=== PATIENT | male | born 1945 | race Caucasian/White ===

== ENCOUNTER 2021-02-20 14:40 | Emergency (ER) | payer OTHER, MEDICARE ==
[2021-02-20] MEDS ORDERED: Sodium Chloride 0.9% 10 ML Syringe FLUSH PRN (14:49)
[2021-02-20] MEDS ORDERED: Morphine 4 MG/ML Syringe IVPUSH ONE ×3 (14:50→17:45)
[2021-02-20] MEDS ORDERED: ceFAZolin 1 GM Vial IVPUSH ONE (15:08)
--- NOTE | 2021-02-20 15:21 | EDM.PDOC ---
ED HPI GENERAL MEDICAL PROBLEM - General Chief Complaint: Upper Extremity Injury/Pain Stated Complaint: CUT FINGER Time Seen by Provider: 02/20/21 15:00 Source of Information: Reports: Patient History Limitations: Reports: No Limitations - History of Present Illness INITIAL COMMENTS - FREE TEXT/NARRATIVE: Pt. presents to ER with complaints of injury to fingers of R hand. Pt. states that he was working with a table saw when he sustained the injury. Denies injury elsewhere. Pt. tetanus is up to date according to [facility] one chart. Onset: Today Onset Date: 02/20/21 Location: Reports: Upper Extremity, Right Quality: Reports: Ache, Sharp, Throbbing Severity: Severe Right Hand Pain Score (Numeric/FACES): 8 - Related Data Allergies Allergy/AdvReac Type Severity Reaction Status Date / Time No Known Allergies Allergy Verified 02/20/21 16:05 Home Meds: Home Meds Ascorbic Acid [Vitamin C] 500 mg PO DAILY 07/17/13 [History] Calcium Carbonate/Vitamin D3 [Caltrate-600 with Vit D Tab] 1 each PO DAILY 07/17/13 [History] Hydrochlorothiazide/Lisinopril [Lisinopril-HCTZ 20-25 MG] 1 tab PO DAILY 07/17/13 [History] Multivitamin [Multi Vitamin Daily] 1 tab PO DAILY 07/17/13 [History] Vitamin E 1 tab PO DAILY 07/17/13 [History] Vitamins A and D [Vitamin A & D] 1 tab PO DAILY 07/17/13 [History] Meclizine [Antivert] 25 mg PO Q6H #14 tablet 02/06/15 [Rx] Selenium 50 mcg PO DAILY 02/20/21 [History] Past Medical History - Past Surgical History Other Musculoskeletal Surgeries/Procedures:: back surgery Review of Systems - Review of Systems Review Of Systems: See Below Constitutional: Reports: No Symptoms Eyes: Reports: No Symptoms Ears: Reports: No Symptoms Nose: Reports: No Symptoms Mouth/Throat: Reports: No Symptoms Respiratory: Reports: No Symptoms Cardiovascular: Reports: No Symptoms GI/Abdominal: Reports: No Symptoms Genitourinary: Reports: No Symptoms Musculoskeletal: Reports: Hand Pain Skin: Reports: No Symptoms Neurological: Reports: No Symptoms Psychiatric: Reports: No Symptoms ED EXAM, GENERAL - Physical Exam Exam: See Below Exam Limited By: No Limitations General Appearance: Alert, WD/WN, No Apparent Distress Extremities: Other (Partial avulsion to pad of L index finger with missing tissue. Partial avulsion to pad of R middle finger. Severe laceration/partial avulsion of R ring finger involving the fingernail. ) Neurological: Alert, Oriented, CN II-XII Intact, No Motor/Sensory Deficits Skin Exam: Warm, Dry, Intact, Normal Color, No Rash ED TRAUMA EXTREMITY PROCEDURES - Splinting Right Upper Extremity Pre-Procedure NV Status: Normal Post-Procedure NV Status: Normal Splint Material: Fiberglass (fabricated) Splint Design: Volar Applied & Form Fitted By: Provider, Nurse Provider Post-Splint Application NV Check: NV Status Normal, Good Position Course - Vital Signs Last Recorded V/S: Last Vital Signs Temp 36.2 C 02/20/21 15:00 Pulse 60 02/20/21 18:10 Resp 16 02/20/21 18:10 BP 124/68 02/20/21 18:10 Pulse Ox 94 L 02/20/21 18:10 - Orders/Labs/Meds Orders: Active Orders 24 hr Category Date Time Status Hand w Cont Rt [CT] Stat Exams 02/20/21 14:50 Stop Req Peripheral IV Insertion Adult [OM.PC] Routine Oth 02/20/21 14:49 Ordered Meds: Medications Discontinued Medications Generic Name Dose Route Start Last Admin Trade Name Bon PRN Reason Stop Dose Admin Hydrocodone Bitart/Acetaminophen 1 packet 02/20/21 17:42 02/20/21 18:01 Take Home: Acetaminophen/Hydrocodone 325-10 Mg, 5 Tab Pack PO 02/20/21 17:43 1 packet ONETIME ONE Administration Cefazolin Sodium 1 gm 02/20/21 15:08 02/20/21 15:32 Cefazolin 1 Gm Vial IVPUSH 02/20/21 15:09 1 gm ONETIME ONE Administration Cephalexin 1 packet 02/20/21 17:42 02/20/21 18:01 Take Home: Cephalexin 500 Mg Cap, 4 Cap Pack PO 02/20/21 17:43 1 packet ONETIME ONE Administration Morphine Sulfate 4 mg 02/20/21 14:50 02/20/21 15:05 Morphine 4 Mg/Ml Syringe IVPUSH 02/20/21 14:51 4 mg ONETIME ONE Administration Morphine Sulfate 4 mg 02/20/21 15:28 02/20/21 15:36 Morphine 4 Mg/Ml Syringe IVPUSH 02/20/21 15:29 4 mg ONETIME ONE Administration Morphine Sulfate 4 mg 02/20/21 17:45 02/20/21 17:56 Morphine 4 Mg/Ml Syringe IVPUSH 02/20/21 17:46 4 mg ONETIME ONE Administration Sodium Chloride 10 ml 02/20/21 14:49 02/20/21 15:41 Sodium Chloride 0.9% 10 Ml Syringe FLUSH 10 ml ASDIRECTED PRN Administration Keep Vein Open - Radiology Interpretation Free Text/Narrative:: Radiographs of the fingers of the R hand were obtained. Possible fracture to mid portion of distal phalaynx of R ring finger, less evident on lateral view. Departure - Departure Time of Disposition: 18:30 Disposition: Home, Self-Care 01 Clinical Impression: Fingernail avulsion, partial, Laceration - Discharge Information Instructions: Laceration Care, Adult Referrals: Svetlana Plata DO [Primary Care Provider] - Forms: ED Department Discharge Additional Instructions: Keep dressing/splint on. Follow-up with Dr. Higgins tomorrow at [facility]. Get registered in the ER. Be there by 11 AM. [place] 10/325mg 1 every 4-6 hours as needed for pain Keflex 500mg 1 cap 4 times a day for 7 days - Problem List Review Problem List Initiated/Reviewed/Updated: Yes - My Orders Last 24 Hours: My Active Orders 02/20/21 14:49 Peripheral IV Insertion Adult [OM.PC] Routine 02/20/21 14:50 Hand w Cont Rt [CT] Stat - Assessment/Plan Last 24 Hours: My Active Orders 02/20/21 14:49 Peripheral IV Insertion Adult [OM.PC] Routine 02/20/21 14:50 Hand w Cont Rt [CT] Stat Plan: Keep dressing/splint on. Follow-up with Dr. Higgins tomorrow at [facility]. Get registered in the ER. Be there by 11 AM. [place] 10/325mg 1 every 4-6 hours as needed for pain Keflex 500mg 1 cap 4 times a day for 7 days
--- NOTE | 2021-02-20 15:42 | CR ---
[id number] RAD/RAD Hand Right 3V EXAM: RAD Hand Right 3V INDICATION: CUT HAND WITH CIRCULAR SAW. COMPARISON: None. DISCUSSION: Soft tissue injuries are suggested in the distal aspect of the second through fourth digits. No radiopaque foreign body, fracture or other acute osseous abnormality is identified. Mild first carpometacarpal osteoarthritis. IMPRESSION: 1. Soft tissue injuries. Adam Hernandez MD 02/20/21 [id number] Thank you for allowing us to participate in the care of your patient.
[2021-02-20] MEDS ORDERED: Take Home: Acetaminophen/HYDROcodone 325-10 MG, 5 Tab Pack PO ONE (17:42)
[2021-02-20] MEDS ORDERED: Take Home: Cephalexin 500 MG Cap, 4 Cap Pack PO ONE (17:42)
[2021-02-20 18:30] VITALS: PULSE 60
[2021-02-20 18:31] VITALS: BP 124/68
== END 2021-02-20 18:20 | disposition home or self-care (01) ==
LOC: VM.ED 14:40
DX: S61.314A Laceration without foreign body of right ring finger with damage to nail, initial encounter (principal); S61.201A Unspecified open wound of left index finger without damage to nail, initial encounter; S61.202A Unspecified open wound of right middle finger without damage to nail, initial encounter; W31.2XXA Contact with powered woodworking and forming machines, initial encounter; Y92.69 Other specified industrial and construction area as the place of occurrence of the external cause
CPT/HCPCS: 29125; 73130-RT; 73201-RT; 96374; 96375; 96376; 99283; 99283-25; A9270-GY; J0690; J2270